=== PATIENT | female | born 1995 ===

== ENCOUNTER 2016-07-11 16:06 | Emergency (ER) | payer BC ==
[2016-07-11 16:17] VITALS: BP 121/73
--- NOTE | 2016-07-11 18:43 | UC ---
Skin Complaint HPI - History of Current Complaint Chief Complaint: UCAllergicReaction Time Seen by Provider: 07/11/16 18:27 Stated Complaint: POSSIBLE ALLERGIC REACTION Hx Obtained From: Patient - started 4 days ago with red, raised itchy bumps on forehead, next day went to her cheeks. now rash is flat, no bumps. This am redness appeared on bilat eyelids. states no change in personal care items Hx Last Menstrual Period: 05/17/16 ?: No Onset/Duration: Gradual Onset Timing: Constant Location: Face Character: Pruritus - mild, Redness Aggravating: Nothing Alleviating: Other - tried benadryl-helped itch and made her tired Associated Signs & Symptoms: Positive: Negative - Allergy/Home Medications Allergies/Adverse Reactions: Allergies Allergy/AdvReac Type Severity Reaction Status Date / Time Latex Allergy Rash Verified 05/21/14 14:45 Home Medications: Home Medications Control Pills 07/11/16 [History] Review of Systems Constitutional: Negative Skin: Rash Eyes: Negative Respiratory: Negative Cardiovascular: Negative Neurological: Negative Psychological: Negative All Other Systems Reviewed And Are Negative: Yes PMH/Surg Hx/FS Hx/Imm Hx Previously Healthy: Yes Endocrine History Of: Denies: Diabetes, Thyroid Disease Cardiovascular History Of: Denies: Cardiac Disorders, Hypertension Respiratory History Of: Denies: COPD, Asthma GI/ History Of: Denies: Ulcer - Surgical History Surgical History: Yes Surgery Procedure, Year, and Place: wisdom teeth removal, lt elbow - Family History Known Family History: Positive: None - Social History Occupation: Employed Full-time - [employer] Lives: With Family Alcohol Use: Rare Substance Use Type: Marijuana Substance Use Comment - Amount & Last Used: once a month Smoking Status (MU): Never Smoked Tobacco - Immunization History Most Recent Influenza Vaccination: this season Most Recent Tetanus Shot: unk Most Recent Pneumonia Vaccination: never Physical Exam Triage Information Reviewed: Yes Appearance: Well-Appearing, No Pain Distress, Well-Nourished Vital Signs: Initial Vital Signs Temp 98.9 F 07/11/16 16:11 Pulse 77 07/11/16 16:11 Resp 18 07/11/16 16:11 BP 121/73 07/11/16 16:11 Pulse Ox 98 07/11/16 16:11 Vital Signs Reviewed: Yes Eye Exam: Normal Eyes: Positive: Conjunctiva Clear. Negative: Discharge ENT Exam: Normal Neck exam: Normal Neck: Positive: No Lymphadenopathy Respiratory Exam: Normal Cardiovascular Exam: Normal Psychological Exam: Normal Skin: Positive: rashes - flat, mildly erythemic rash forehead, bilateral cheeks , upper eyelids. no vesicals, urticaria or swelling Course/Dx - Differential Diagnoses - Skin Complaint Differential Diagnoses: Allergic Reaction, Cellulitis, Contact Dermatitis, Drug Rash, Eczema, Systemic Illness - Diagnoses Provider Diagnoses: allergic dermatitis Discharge - Discharge Plan Condition: Stable Disposition: HOME Patient Education Materials: Contact Dermatitis (ED) Referrals: Nestor Rueda MD [Primary Care Provider] - 2 Days (if no better) Additional Instructions: apply thin layer over the counter hydrocortisone cream twice a day if no better in [address] Hargrove for further evaluation
== END 2016-07-11 18:52 | disposition home or self-care (01) ==
LOC: UCEAST 16:06
DX: L23.9 Allergic contact dermatitis, unspecified cause (principal); F12.90 Cannabis use, unspecified, uncomplicated
CPT/HCPCS: 99211; G0463